=== PATIENT | female | born 1970 | race Two or more races ===

== ENCOUNTER 2024-06-06 02:56 | Emergency (ER) | payer MEDICAID, SELFPAY ==
[2024-06-06 02:56] VITALS: BMI 34.2
[2024-06-06 03:09] VITALS: BP 144/87; PULSE 60; RESP 18; TEMP 36.8; O2SAT 98
--- NOTE | 2024-06-06 03:28 | PD.EDUPEX ---
Upper Extremity Injury RME/HPI General Chief Complaint: Extremity Injury, Upper Stated Complaint: left ARM PAIN, HX ARTHRITIS Time Seen by Provider: 06/06/24 03:07 Arrival date/time: 06/06/24 02:56 54 year old female present to emergency room with c/o of chronic leg arm pain, worsen the past 3 months. Pt has an appointment with OA specialist in 1 month. pt report gotten an toradol IM in the clinic in the past that help with the pain. LOCATION: arm pain SEVERITY: Symptoms are described as being severe with limitations on activities of daily living QUALITY: Symptoms are described as being dull or achy CONTEXT:chronic arm pain via OA DURATION/TIMING: The symptoms started approximately 3 months ago and have been constant this then. ASSOCIATED SYMPTOMS: The patient is unable to identify any other associated symptoms. MODIFYING FACTORS: The patient is unable to identify any alleviating or aggravating symptoms. PERTINENT ROS: no fevers, no headache, no neck or chest pain, no unexplained nausea or vomiting, no focal neurological deficits REVIEW OF SYSTEMS: See History of Present Illness - with the exception of those mentioned in the history of present illness, all other systems reviewed and reported as negative GENERAL: In general the patient is awake, interactive, in an emergency department gurney. HEAD/EYES/EARS/NOSE/THROAT: normo-cephalic, atraumatic, mucus membranes are moist, anicteric, palpebral conjunctiva is pink, trachea is midline. CARDIOVASCULAR: regular rate and regular rhythm, no murmurs, heart sounds are not distant, strong pulses in all four extremities that are equal and symmetric bilateral upper and lower extremities, normal capillary refill. NEUROLOGICAL: cranio-facial features are symmetric, moves all four extremities equally without obvious limitations or weakness. EXTREMITY: + left shoulder pain (chronic) no sign of trauma or infection. no tenderness to palpation over the long bones or large joints of the bilateral lower extremities, no joint swelling, no joint erythema, no signs of trauma, no unilateral leg swelling and no peripheral edema. SKIN: warm, dry, well-perfused, no jaundice, no rash, no telangiectasias or petechia. PSYCH: calm, cooperative, no evidence of psychosis or agitation Related Data Home Medications ?Medication ?Instructions ?Recorded ?Confirmed famotidine 40 mg tablet 40 mg PO DAILY 08/13/21 08/15/21 levothyroxine 25 mcg tablet 25 mcg PO DAILY 08/13/21 08/15/21 metformin 500 mg tablet 500 mg PO DAILY 08/13/21 08/15/21 omeprazole 40 mg capsule,delayed 40 mg PO TID 08/13/21 08/15/21 release pilocarpine HCl 5 mg tablet 5 mg PO TID 08/13/21 08/15/21 Previous Rx's ?Medication ?Instructions ?Recorded erythromycin 5 mg/gram (0.5 %) eye 1 applic ophthalmic (eye) QDAY #1 g 07/08/20 ointment prednisone 20 mg tablet 20 mg PO QDAY 3 days #3 tabs 06/06/24 Allergies Allergy/AdvReac Type Severity Reaction Status Date / Time No Known Allergies Allergy Verified 06/06/24 02:59 Course Quality Measures none Orders Category Date Time Status Ketorolac Inj [Toradol Inj] Med 06/06/24 03:24 Discontinued 30 mg IM X1 ONE predniSONE Med 06/06/24 04:41 Discontinued 40 mg PO X1 ONE Vital Signs Vital signs: Vital Signs Temperature 98.2 F 06/06/24 03:09 Pulse Rate 60 06/06/24 03:09 Respiratory Rate 18 06/06/24 03:09 Blood Pressure 144/87 H 06/06/24 03:09 Pulse Oximetry (%) 98 06/06/24 03:09 Oxygen Delivery Method Room Air 06/06/24 03:09 Extremity Injury Patient data External records reviewed:: None Clinical information provided by:: patient Social determinants that could affect healthcare access:: none Patient has the following chronic illnesses:: OA How is presenting disease/condition affected by chronic disease/condition?: exacerbated by Evaluation data The following diagnostics were reviewed and interpreted by me:: other (specify) (none ) Lab and/or radiology exams considered but not ordered:: none Interpretation Summary: none Medications / Prescriptions Medications or Prescriptions considered but not ordered:: none Medication administrations:: Medication Administration History Discontinued Medications Ketorolac Tromethamine (Ketorolac Inj 60 Mg/2 Ml Vial) 30 mg IM X1 ONE Stop: 06/06/24 03:25 Last Admin: 06/06/24 03:37 Dose: 30 mg Documented By: MAMI Prednisone (Prednisone 20 Mg Tablet) 40 mg PO X1 ONE Stop: 06/06/24 04:42 Last Admin: 06/06/24 04:46 Dose: 40 mg Documented By: SF as stated above Consultations Consultation(s) initiated? (list below): No Diagnosis Upper Extremity Injury Differential Diagnosis: sprain and strain of wrist and other (OA, chronic pain) Most likely diagnosis given after review of the tests above:: chronic arm pain Admission Indicated Admission indicated?: not indicated Admission Request Was there a request for admission?: No Disposition Plan Disposition Plan: Discharge Discharge Attestation Discharge Attestation: The patient and all family members were given an opportunity to ask questions and understood the discharge instructions. Discharge instructions specifically effects, indications for sooner follow up or return to the emergency department, and the expected course of current diagnosis. Patient condition: Stable Discharge Plan Plan Patient Disposition: HOME (Self Care) Prescriptions/Referrals Prescriptions/Med Rec: New prednisone 20 mg tablet 20 mg PO QDAY 3 Days Qty: 3 0RF Taper: Prednisone Taper 20 mg DAILY for 3 Days and 0 Hour No Action erythromycin 5 mg/gram (0.5 %) ointment 1 applic ophthalmic (eye) QDAY Qty: 1 0RF Rx Instructions: apply to right eye metformin 500 mg Tablet 500 mg PO DAILY pilocarpine HCl 5 mg Tablet 5 mg PO TID famotidine 40 mg Tablet 40 mg PO DAILY omeprazole 40 mg Capsule,Delayed Release(Dr/Ec) 40 mg PO TID levothyroxine 25 mcg Tablet 25 mcg PO DAILY Problem List Clinical Impression: Arm pain Patient/Caregiver Discharge Instructions Education Materials: ED RICE Print Language: [place] Stand Alone Forms: Lyla Award Info., Patient Portal Info Letter MD Attestation MD Attestation The patient was seen by the midlevel practitioner. I, the co-signing physician, was present during the entire ER visit. While I did not physically examine the patient, I was available for consultation as needed.
[2024-06-06] MEDS: KETOROLAC INJ 60 MG/2 ML VIAL 30 MG IM (03:37)
[2024-06-06] MEDS: predniSONE 20 MG TABLET 40 MG PO (04:46)
== END 2024-06-06 04:51 | disposition home or self-care (01) ==
LOC: SERX 03:42
PROVIDERS: Emergency Provider Emergency Medicine; PCP Internal Medicine
DX: M25.511 Pain in right shoulder (principal)
CPT/HCPCS: 96372; 99283; J1885; J7512

== ENCOUNTER 2024-07-11 09:22 | Outpatient (RCR) | payer MEDICAID, SELFPAY | END 2024-07-26 23:59 | disposition home or self-care (01) | LOC: SCTC 09:22 | PROVIDERS: PCP Physician Assistant; Referring Provider Physician Assistant; Visit Provider Nurse Practitioner Family | DX: D69.6 Thrombocytopenia, unspecified (principal); M35.00 Sjogren syndrome, unspecified; E03.9 Hypothyroidism, unspecified; E66.9 Obesity, unspecified; Z68.34 Body mass index [BMI] 34.0-34.9, adult | CPT/HCPCS: 99212; G0463 ==

== ENCOUNTER 2024-09-14 09:23 | Outpatient (RCR) | payer MEDICAID, SELFPAY | END 2024-09-23 23:59 | disposition home or self-care (01) | LOC: SCTC 09:23 | PROVIDERS: PCP Physician Assistant; Referring Provider Physician Assistant; Visit Provider Nurse Practitioner Family | DX: D69.6 Thrombocytopenia, unspecified (principal); M35.00 Sjogren syndrome, unspecified | CPT/HCPCS: 99212; G0463 ==

== ENCOUNTER 2024-11-14 08:51 | Outpatient (RCR) | payer MEDICAID, SELFPAY | END 2024-11-23 23:59 | disposition home or self-care (01) | LOC: SCTC 08:51 | PROVIDERS: PCP Physician Assistant; Referring Provider Physician Assistant; Visit Provider Nurse Practitioner Family | DX: D69.6 Thrombocytopenia, unspecified (principal); M35.00 Sjogren syndrome, unspecified; E03.9 Hypothyroidism, unspecified; E66.9 Obesity, unspecified; Z68.34 Body mass index [BMI] 34.0-34.9, adult | CPT/HCPCS: 99212; G0463 ==

== ENCOUNTER 2025-03-20 13:51 | Outpatient (RCR) | payer MEDICAID, SELFPAY ==
--- NOTE | 2025-03-20 15:02 | CTCFLWUP_ITS ---
Patient: WILLY LOVING : 1970 Page 4 of 6 FOLLOW UP NOTE DATE OF SERVICE: 03/20/2025 NAME: WILLY LOVING ACCOUNT: [id number] : 1970 AGE: 54 INTERVAL HISTORY: Patient with known Sjogren's syndrome on Plaquenil and methotrexate here for follow-up on thrombocytopenia. Patient do not have any new bleeding or bruising ONCOLOGY HISTORY: Not applicable DIAGNOSIS: Mild asymptomatic thrombocytopenia secondary to Sjogren's syndrome. Following up with rheumatology, Dr. Fonseca. Currently on Plaquenil and methotrexate. TREATMENT HISTORY: Care?Plan Start?Date Cycle Day Intent HISTORY OF PRESENT ILLNESS: Ms. Rosales is a 54 year-old [place] Speaking female with PMH of DM, arthritis. hypothyroidism and Sjogren's syndrome. Patient was referred to hematology clinic for the evaluation of mild thrombocytopenia. Patient states that she was diagnosed with Sibgren's syndrome about 2019 and currently follows up with Dr. Fonseca. She is taking Hydroxychloroquine. Patient denies ever smoked or use any IV drugs. Denies any blood transfusion. Admits occasional alcohol drinking. Prior to this visit, patient had two sets of labs done as followings: 09/20/2020: WBC 5.2, ANC 2.5, hemoglobin 13.9, MCV 96, platelets 127,000. AST 24, ALT 28, CRP <1 mg/L, ESR 25 (normal 0-32). 10/19/2020: WBC 4.4, ANC 1.9, hemoglobin 14.5, MCV 9S, platelets 137,000, ALT 26, AST 20, TSH 0.169 (OAS-4.5). 03/07/2021: W8C 5.3, ANC 2.4, hemoglobin 13.6, MCV 96, platelets 122,000, hepatitis panel negative, ferritin 28, RF 12.0 04/03/2021: W8C 4.6, ANC 2.2, hemoglobin 13.4, MCV 96, platelets 117.0(1), AST 22, ALT 31. 04/30/2021: WBC 5.3, ANC 2.7, hemoglobin 13.9, MCV 94, platelets 123,000, AST 16, ALT 18. 04/30/2021: abdomen ultrasound-no organomegaly 10/15/2021: Platelet count 138,000, WBC 3.9, ANC 1.9, hemoglobin 13.0 with an MCV of 94 12/30/2021: Platelet count 136,000, WBC 6.3, ANC 3.3, hemoglobin 13.4, MCV 96. 06/30/2022: Platelet count 135,000, W8C 5.4, ANC 2.5, hemoglobin 13.8. 07/07/2023: Platelet count 124,000, WBC 4.8, ANC 2.1, hemoglobin 12.8, MCV 97 12/29/2023: Platelets 115,000, WBC 3.3, ANC 1.2, hemoglobin 12.8, MCV 98 03/01/2024: Platelets 126,000, W8C 4.3, ANC 1.9, hemoglobin 13.2, MCV 101 05/06/2024: Platelets 111,000, W8C 4.0, ANC 1.9, hemoglobin 13.5, MCV 100 07/04/2024: Platelets 106,000, WBC 5.0, ANC 2.4, hemoglobin 13.8, MCV 101 DIAGNOSIS: Mild asymptomatic thrombocytopenia most likely secondary to Sjogren's syndrome. Sjogren's syndrome currently being followed by Dr. Fonseca. Currently on Plaquenil and methotrexate Hypothyroidism. 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 atorvastatin - 20 mg 1 tab Daily 2. folic acid - 1 mg 1 tab Daily 3. gabapentin - 100 mg 1 tab Three times a day 4. ibuprofen - 800 mg 1 tab Three times a day 5. magnesium - 250 mg 1 tab Daily 6. meloxicam - 15 mg 1 tab Daily 7. metHOTREXate (Anti-Rheumatic) - 2.5 mg 3 tab Weekly 8. omeprazole - 20 mg 1 Twice a Day 9. Pepcid - 1 Daily 10. pilocarpine HCl - 5 mg 1 tab Three times a day 11. Plaquenil - 200 mg 1 tab Twice a Day 12. Vitamin D3 - 400 unit 1 tab Daily Medications Last Reconciled by Keisha Chen MD on 03/20/2025 ALLERGIES: No Known Drug Allergies REVIEW OF SYSTEMS: A complete 14-point review of systems was performed and is negative except as noted in interval history. PHYSICAL EXAMINATION: VITAL SIGNS: Temperature?97.6, B/P?118/71, Oxygen?Saturation?98% Weight?189?lbs PAIN: 0 - No pain ECOG Performance Status: None GENERAL APPEARANCE: Appears well, in no apparent distress, appropriately interactive. HEENT: Normocephalic, normal conjunctiva, normal hearing, lips without lesions, CARDIOVASCULAR: Normal heart sounds PULMONARY: Normal respiratory effort, no respiratory distress or use of accessory muscles, speaking in full sentences, no tachypnea. EXTREMITIES: No cyanosis. SKIN: Normal skin appearance. NEUROLOGIC: Alert and ORIENTED x4. PSHYCHIATRIC: Appropriate affect, mood normal, behavior normal, intact thought and speech. LABORATORY DATA: I have personally reviewed and interpreted each of the patient?s relevant lab tests, abnormal findings are below: Date ASSESSMENT/PLAN: 1. Mild asymptomatic thrombocytopenia secondary to Sjogren's syndrome. Labs reviewed and patient's platelet count has been about 120-130 since 2020 and is stable Thrombocytopenia likely from her underlying autoimmune problem Continue to monitor As patient's labs are stable can continue to monitor every 6 months 6 months with Ashley 2. Continue following up with PCP for other chronic conditions. Hypothyroidism, obesity, BMI 34.4, 194 LB. ORDERS: Order # Description [id number] [facility] Hereditary Cancer Test [id number] CBC with Auto Diff + Comprehensive Metabolic Panel - 12 + MD Follow Up 6 Month RETURN TO CLINIC: I reviewed the diagnosis, prognosis, and recommended treatment/procedure options with the patient (and/or their legal goodwill representative), including the potential benefits, risks, side effects and alternative therapies. We also discussed the option of no treatment and the possibility of clinical trial participation, if applicable. All questions were addressed, and they demonstrated understanding. They provided informed consent to proceed with the proposed plan of care. BILLING AND COMPLIANCE: I reviewed external records from providers outside my specialty as summarized above. I spent a total of 50 minutes on this patient?s care on the day of their visit excluding time spent related to any billed procedures. This time includes time spent with the patient as well as time spent documenting in the medical record, reviewing patients records and tests, obtaining history, placing orders, communicating with other healthcare professionals, counseling the patient, family or caregiver, and/or care coordination for the diagnoses above. Electronically Signed by: {Object.Sanct_ID*PnP.NameFL@M}, {Object.Sanct_ID*PnP.Suffix@U} D: {Object.Sanct_Date} T: {Object.Sanct_Time} CC: PCP: Mary Mcdonnell Referring: Mary Mcdonnell This document was completed utilizing speech recognition software. Grammatical errors, random word insertions, pronoun errors, and incomplete sentences are an occasional consequence of this system due to software limitations, ambient noise, and hardware issues. Any formal questions or concerns about the content, text or information contained within the body of this dictation should be directly addressed to the provider for clarification.
== END 2025-03-26 23:59 | disposition home or self-care (01) ==
LOC: SCTC 13:51
PROVIDERS: PCP Physician Assistant; Referring Provider Physician Assistant; Visit Provider Internal Medicine Hematology & Oncology
DX: D69.6 Thrombocytopenia, unspecified (principal); M35.00 Sjogren syndrome, unspecified; E03.9 Hypothyroidism, unspecified; E66.9 Obesity, unspecified; Z68.34 Body mass index [BMI] 34.0-34.9, adult
CPT/HCPCS: 99212; G0463

== ENCOUNTER 2025-05-04 07:58 | Outpatient (RCR) | payer MEDICAID, SELFPAY | END 2025-05-26 23:59 | disposition home or self-care (01) | LOC: SCTC 07:58 | PROVIDERS: PCP Physician Assistant; Referring Provider Physician Assistant; Visit Provider Internal Medicine Hematology & Oncology | DX: D69.6 Thrombocytopenia, unspecified (principal); M35.00 Sjogren syndrome, unspecified | CPT/HCPCS: 36415 ==

== ENCOUNTER → 2025-05-11 | Outpatient (CLI) | payer MEDICAID, SELFPAY ==
--- NOTE | 2025-05-11 08:42 | XR_ITS ---
Examination: CT abdomen and pelvis without contrast. Coronal 3-D reconstructions. Sagittal 2-D reconstructions. Date and time of exam: May 11, 2025, 0855 hours INDICATIONS: Right lower abdominal pain radiating to the umbilicus beginning 1 year ago CTDI: vol (mGy): 9.28 DLP: (mGycm): 507 Technique: Axial images of the abdomen have been obtained, 3 mm slice thickness Intravenous contrast material has not been administered. Low dose protocols were performed. One or more of the following dose reduction techniques were used; automated exposure control, adjustment of the mA and/or KV according to patient size, use of iterative reconstruction technique. Findings: No focal liver or splenic lesions No gallstones No pancreatic or adrenal mass No renal or ureteral calculi, no hydronephrosis Aorta normal size Normal appendix 12 mm fat-containing umbilical hernia No bowel obstruction or diverticulitis No pelvic mass Urinary bladder intact Moderate osteopenia Advanced degenerative disc disease L4-L5 with moderate overall spinal stenosis at this level, axial image 114 IMPRESSION: Normal appendix No renal or ureteral calculi, no hydronephrosis No bowel obstruction or diverticulitis Advanced degenerative disc disease L4-L5
== END | disposition home or self-care (01) ==
LOC: CCTX 08:27
PROVIDERS: PCP Physician Assistant; Referring Provider Physician Assistant; Visit Provider Physician Assistant
DX: M51.360 Other intervertebral disc degeneration, lumbar region with discogenic back pain only (principal)
CPT/HCPCS: 74176